=== PATIENT | female | born 1995 | race Hispanic/Latino ===

== ENCOUNTER 2018-06-10 14:39 | Emergency (ER) | payer MEDICAID ==
[2018-06-10 14:46] VITALS: RESP 16
[2018-06-10] MEDS ORDERED: Sodium Chloride 0.9% 1,000 ML IV STA (15:03)
[2018-06-10 15:25] LABS: BASO % 0.9 % (0.0-2.0); EOS # 0.1 K/uL (0.0-0.7); EOS % 1.6 % (0.0-4.0); HEMOGLOBIN 13.1 g/dL (12.0-16.0); LYMPH # 2.3 K/uL (1.0-4.3); LYMPH % 64.9 % (20.0-40.0); MEAN CELL VOLUME 89.1 fl (81.0-99.0); MEAN CORPUSCULAR HEMOGLOBIN 30.1 pg (27.0-31.0); MEAN CORPUSCULAR HGB CONC 33.7 g/dL (33.0-37.0); MONO # 0.3 K/uL (0.0-0.8); MONO % 7.7 % (0.0-10.0); NEUT # 0.9 K/uL (1.8-7.0); NEUT % 24.9 % (50.0-75.0); NRBC % 0.1 % (0.0-0.0); RBC 4.35 Mil/uL (3.80-5.20); WHITE BLOOD COUNT 3.5 K/uL (4.8-10.8)
[2018-06-10 15:42] LABS: ALB/GLOB RATIO 1.5 (1.0-2.1); ALBUMIN 4.6 g/dL (3.5-5.0); ALT/SGPT 27 U/L (9-52); AST/SGOT 25 U/L (14-36); BLOOD UREA NITROGEN 7 mg/dl (7-17); CALCIUM 9.5 mg/dL (8.4-10.2); GFR NON-AFRICAN AMERICAN > 60; LIPASE 80 U/L (23-300)
[2018-06-10 15:52] LABS: SQUAMOUS EPITHIAL 6 /hpf (0-5); URINE BACTERIA RARE (<OCC); URINE BILIRUBIN NEGATIVE (NEGATIVE); URINE BLOOD NEGATIVE (NEGATIVE); URINE CLARITY CLEAR (Clear); URINE COLOR AMBER (YELLOW); URINE GLUCOSE (UA) NEG (Normal); URINE LEUKOCYTE ESTERASE NEG Leu/uL (Negative); URINE PROTEIN NEGATIVE (NEGATIVE)
--- NOTE | 2018-06-10 16:28 | ED PDOC ---
HPI: Abdomen Time Seen by Provider: 06/10/18 14:58 Chief Complaint (Nursing): GI Problem Chief Complaint (Provider): Abdominal Pain History Per: Patient History/Exam Limitations: no limitations Onset/Duration Of Symptoms: Days Current Symptoms Are (Timing): Still Present Location Of Pain/Discomfort: RLQ Additional Complaint(s): 22 y/o female with no significant PMHx presents to the ED complaining of right lower quadrant pain since 06/06/2018. Patient states she saw PMD and was diagnosed with a UTI and prescribed antibiotics. Patient reports of just starting Macrobid and Pyridium for pain yesterday. However, today patient states she is now experiencing pain in the left flank and nausea. Otherwise: (- ) vomiting, (-) changes in appetite, (-) diarrhea, (-) fever. PMD: Rory Cooney Past Medical History Reviewed: Historical Data, Nursing Documentation, Vital Signs Vital Signs: Last Vital Signs Temp 98.5 F 06/10/18 17:45 Pulse 82 06/10/18 17:45 Resp 16 06/10/18 17:45 BP 125/81 06/10/18 17:45 Pulse Ox 99 06/10/18 17:45 - Medical History PMH: Depression (previous admission to [facility] in 2013) Denies: Diabetes, Hepatitis, HIV, HTN, Chronic Kidney Disease, Seizures, Sexually Transmitted Disease - Surgical History Surgical History: No Surg Hx - Family History Family History: States: Unknown Family Hx - Immunization History Hx Tetanus Toxoid Vaccination: No Hx Influenza Vaccination: Yes Hx Pneumococcal Vaccination: No - Home Medications Home Medications: Ambulatory Orders Medication Instructions Recorded Citalopram [celeXA] 10 mg PO DAILY #30 tab 09/19/15 traZODone [Desyrel] 50 mg PO HS PRN #15 tab 09/19/15 Ibuprofen [Motrin Tab] 600 mg PO QID PRN #20 tab 06/10/18 - Allergies Allergies/Adverse Reactions: Allergies Allergy/AdvReac Type Severity Reaction Status Date / Time No Known Allergies Allergy Verified 06/10/18 14:42 Review of Systems ROS Statement: Except As Marked, All Systems Reviewed And Found Negative Constitutional: Negative for: Fever Gastrointestinal: Positive for: Nausea, Abdominal Pain, Hematochezia ( Approximately 2 days ago but non today). Negative for: Vomiting, Diarrhea Musculoskeletal: Positive for: Back Pain Physical Exam - Reviewed Nursing Documentation Reviewed: Yes Vital Signs Reviewed: Yes - Physical Exam Comments: GENERAL APPEARANCE: Patient is laying comfortably, awake, alert, oriented x 3, no acute distress. SKIN: Warm, dry; (-) cyanosis. EYES: (-) conjunctival pallor, (-) scleral icterus. ENMT: Mucous membranes moist. NECK: (-) tenderness, (-) stiffness, (-) lymphadenopathy. CHEST AND RESPIRATORY: (-) rales, (-) rhonchi, (-) wheezes; breath sounds equal bilaterally. HEART AND CARDIOVASCULAR: (-) irregularity; (-) murmur, (-) gallop. ABDOMEN AND GI: Soft. (-) distention. Bowel sounds active; (-) tenderness. (- ) guarding, (-) rebound, (-) palpable masses, (+) mild left CVA tenderness. EXTREMITIES: (-) deformity, (-) edema, (+) distal pulses. NEURO AND PSYCH: Mental status as above; (-) focal findings. - Laboratory Results Result Diagrams: 06/10/18 15:21 06/10/18 15:21 - ECG O2 Sat by Pulse Oximetry: 100 (RA) Pulse Ox Interpretation: Normal Medical Decision Making Medical Decision Making: Time: 1528 Impression: Abdominal Pain Plan: -- CMP -- Lipase -- ED Urine -- CBC with differentials -- Sodium Chloride IV 999 mls/hr -- Rocephin 1 gm Sodium Chloride 100 ml IVPB -- Toradol 30 mg IVP -- Urine Culture -- IV Insertion -- Urinalysis -- Renal US Urine hCG negative Labs reviewed : CBC, CMP and lipse within normal limits, UA +nitrates indicating infection. Rocephin IV ordered. Renal US : FINDINGS: RIGHT KIDNEY: Measures: 9.3 x 4.0 x 5.0 cm. Normal in size, contour and echogenicity. No stone, solid mass lesion or hydronephrosis visualized. LEFT KIDNEY: Measures: 9.7 x 4.2 x 3.3 cm. Normal in size, contour and echogenicity. No stone, solid mass lesion or hydronephrosis visualized. OTHER FINDINGS: None. IMPRESSION: Unremarkable renal sonogram. On reevaluation, patient reports improvement of symptoms, denies any abdominal pain, flank pain or nausea. On exam, patient remains awake alert and oriented 3 in no acute distress. Abdomen soft and nontender, no CVA tenderness. Diagnostic results discussed with the patient in great detail. Diagnosis of flank pain, UTI, possible early pyelonephritis discussed with the patient. Based on history, exam and diagnostic results plan will be for outpatient follow -up. Advised to follow up with primary care physician in 1-2 days without fail. Advised to take medication as prescribed. Return to the emergency room at any time for any new or worsening symptoms. Patient states she fully agrees with and understands discharge instructions. States that she agrees with the plan and disposition. Verbalized and repeated discharge instructions and plan. I have given the patient opportunity to ask any additional questions. Scribe Attestation: Documented by Tisha Krishna acting as a scribe for Chetna Rosas PA-C. Provider Scribe Attestation: All medical record entries made by the Scribe were at my direction and personally dictated by me. I have reviewed the chart and agree that the record accurately reflects my personal performance of the history, physical exam, medical decision making, and the department course for this patient. I have also personally directed, reviewed, and agree with the discharge instructions and disposition. Disposition - Clinical Impression Clinical Impression: Left flank pain, UTI (urinary tract infection) - Patient ED Disposition Is Patient to be Admitted: No Counseled Patient/Family Regarding: Studies Performed, Diagnosis, Need For Followup, Rx Given - Disposition Disposition: Routine/Home Disposition Time: 17:15 Condition: STABLE Additional Instructions: Thank you for letting us take care of you today. You were treated for left flank pain, UTI, consider early pyelonephritis. The emergency medical care you received today was directed at your acute symptoms. If you were prescribed any medication, please fill it and take as directed. It may take several days for your symptoms to resolve. Return to the Emergency Department if your symptoms worsen, do not improve, or if you have any other problems. Please contact your doctor in 2 days for re-evaluation and follow up. Bring any paperwork you were given at discharge with you along with any medications you are taking to your follow up visit. Our treatment cannot replace ongoing medical care by a primary care provider (PCP) outside of the emergency department. Thank you for allowing the [facility] team to be part of your care today. If you had an US: A Radiologist will review the ED reading if any change in treatment is needed we will contact you. If you had a urine culture: It will take several days for the results, if any change in treatment is needed we will contact you. Prescriptions: Ibuprofen [Motrin Tab] 600 mg PO QID PRN #20 tab PRN Reason: Pain, Moderate (4-7) Instructions: Urinary Tract Infections in Adults, Flank Pain (DC) Forms: [employer] (Indonesian)
[2018-06-10] MEDS ORDERED: cefTRIAXone (Rocephin) 1 gm Inj ONE (16:32)
--- NOTE | 2018-06-10 17:04 | US ---
Date of service: 06/10/2018 PROCEDURE: Ultrasound of the Kidneys HISTORY: L flank pain COMPARISON: None available. TECHNIQUE: Sonogram of the kidneys. FINDINGS: RIGHT KIDNEY: Measures: 9.3 x 4.0 x 5.0 cm. Normal in size, contour and echogenicity. No stone, solid mass lesion or hydronephrosis visualized. LEFT KIDNEY: Measures: 9.7 x 4.2 x 3.3 cm. Normal in size, contour and echogenicity. No stone, solid mass lesion or hydronephrosis visualized. OTHER FINDINGS: None. IMPRESSION: Unremarkable renal sonogram.
[2018-06-10 18:05] VITALS: BP 125/81; PULSE 82; TEMP 98.5
[2018-06-10 18:23] VITALS: O2SAT 100
== END 2018-06-10 18:02 | disposition home or self-care (01) ==
LOC: H.ER 14:39
DX: N39.0 Urinary tract infection, site not specified (principal); Z86.59 Personal history of other mental and behavioral disorders
CPT/HCPCS: 76770; 80053; 81003; 81025; 83690; 85025; 87086; 96360; 96365; 96374; 99283; J0696; J1885; J7030